=== PATIENT | female | born 1940 | race Caucasian/White ===

== ENCOUNTER → 2016-06-27 | Outpatient (CLI) | payer MEDICARE, BC ==
[2016-06-27 11:39] LABS: HEMOGLOBIN 12.5 g/dL (12.2-16.2); LYMPH # 1.2 K/mm3 (0.7-4.5); LYMPH % 35.5 % (10-50.0)
[2016-06-27 13:18] LABS: BUN 15 mg/dL (7-18)
[2016-06-27 13:21] LABS: GFR (ESTIMATED) 61 ML/MIN (59-)
== END ==
LOC: LAB 10:50
PROVIDERS: Nurse Practitioner Acute Care
DX: B19.20 Unspecified viral hepatitis C without hepatic coma (principal)